=== PATIENT | female | born 1980 | race Caucasian/White ===

== ENCOUNTER 2016-12-12 11:57 | Day surgery (SDC) | payer MEDICAID ==
[~2016-12-12] VITALS: Ht 157.5 cm; Wt 119.1 kg
[~2016-12-12 11:57] MED LIST: GLUCOPHAGE500 MG PO; HYDROCODONE-APA1 TAB PO; KEPPRA500 MG PO; LEXAPRO20 MG PO; NAPROSYN500 MG PO; PAMELOR75 MG PO; SYNTHROID100 MCG PO
[2016-12-12] MEDS ORDERED: ZOLOFT50 MG PO (13:41)
[2016-12-12 13:53] VITALS: Ht 157.5 cm; Wt 119.1 kg
[2016-12-12 14:32] LABS: BASOPHILS 0.4 % (0.0-2.0); HEMATOCRIT 39.7 % (36.0-48.0); IMMATURE GRANULOCYTES 0.3 % (0-5); LYMPHOCYTES 27.6 % (15-50); MCH 28.7 pg (26.0-34.0); MCHC 32.7 g/dL (31.0-37.0); MCV 87.6 fL (80.0-100.0); MEAN PLATELET VOLUME 10.2 fL (7.4-10.4); MONOCYTES 5.1 % (2-11); NEUTROPHILS 65.6 % (40-80); PLATELET COUNT 280 10x3/uL (130-400); RBC 4.53 10x6/uL (4.00-5.40); RDW 13.4 % (11.5-14.5); WBC 7.9 10x3/uL (4.8-10.8)
[2016-12-12 14:41] LABS: CALC OSMOLALITY 281 mosm/kg (275-300); CALCIUM 8.7 mg/dL (8.5-10.1); CARBON DIOXIDE 22.1 mmol/L (21.0-32.0); CHLORIDE - SERUM 107 mmol/L (98-107); CREATININE - SERUM 0.7 mg/dL (0.6-1.3); GLUCOSE 92 mg/dL (74-106); POTASSIUM - SERUM 3.9 mmol/L (3.5-5.1); SODIUM 142 mmol/L (136-145); UREA NITROGEN 10 mg/dL (7-18); eGFR NON AFRICAN AMERICAN > 90 mL/min (90-120)
--- NOTE | 2016-12-18 10:15 | OP ---
PATIENT NAME: EMILIA WEN MEDICAL RECORD: [id number] :80 LOCATION:[facility] ADMISSION DATE: SURGEON: JASMINA RODARTE DO DATE OF OPERATION: 12/12/2016 PROCEDURE: Colonoscopy. INDICATIONS FOR PROCEDURE: Lower abdominal pain and altered bowel function. SCOPE: [employer] video pediatric colonoscope. MEDICATIONS: Propofol 350 mg IV per anesthesia. FINDINGS: Informed consent was given. The patient was made comfortable with the above medication. After reaching an adequate level of sedation, the patient was placed on her left side. A digital rectal examination was performed and was normal. The endoscope was then advanced under direct visualization through the rectum to the cecum evidenced by visualization of the appendiceal orifice. The prep was poor. Withdrawal time was 7 minutes. The entire colon had normal mucosa without evidence of diverticula or other lesions. Random biopsies were taken in the ascending colon to rule out microscopic colitis. The scope was withdrawn from the patient. The patient tolerated the procedure well and there were no complications. IMPRESSION: Normal colonoscopy with random biopsies taken. PLAN AND RECOMMENDATIONS: 1. Discharge home when recovery parameters are met. 2. Continue current diet. 3. Continue current medications. 4. Add Amitiza 24 mcg twice daily to her medication regimen as well as Bentyl 10 mg 1-2 tablets twice daily as needed for abdominal pain and spasms. 5. Follow up in the clinic as needed if these medications do not help with her symptoms. TRANSINT:[id number] Voice Confirmation ID: [id number] DOCUMENT ID: [id number] JASMINA RODARTE DO at 1015 CC: [id number] DICTATION DATE: 12/12/16 1521 B[place]RER HAND: 12/12/162016 [facility] 12/12/16 [place] [id number] [place] [id number]
== END 2016-12-12 16:20 | disposition home or self-care (01) ==
LOC: D.OPS 11:57
PROVIDERS: Anesthesiology
DX: K52.9 Noninfective gastroenteritis and colitis, unspecified (principal); K59.9 Functional intestinal disorder, unspecified

== ENCOUNTER → 2017-09-06 15:24 | Outpatient (CLI) | payer MEDICAID ==
[2016-12-12 13:53] VITALS: BMI 48.0
[~2017-09-06 15:24] MED LIST changes: +ZOLOFT50 MG PO
== END | disposition home or self-care (01) ==
LOC: D.MAMMO 09:30
DX: Z12.31 Encounter for screening mammogram for malignant neoplasm of breast (principal)